=== PATIENT | male | born 1985 | race Caucasian/White ===

== ENCOUNTER 2023-12-15 19:57 | Emergency (ER) | payer OTHER ==
[2023-12-15 21:36] VITALS: BP 139/91; PULSE 70; RESP 16; TEMP 97.8; BMI 28.7
== END 2023-12-15 21:37 | disposition home or self-care (01) ==
LOC: FER 19:57
PROC: 0H9LXZZ Drainage of Left Lower Leg Skin, External Approach (ICD-10-PCS; principal; 2023-12-15)
DX: S81.812A Laceration without foreign body, left lower leg, initial encounter (principal); W22.8XXA Striking against or struck by other objects, initial encounter
CPT/HCPCS: 99283-25